=== PATIENT | male | born 1960 | race Caucasian/White ===

== ENCOUNTER 2017-08-13 01:24 | Emergency (ER) ==
[2017-08-13 01:45] VITALS: BP 157/100; TEMP 97.5; BMI 34.5
[2017-08-13] MEDS ORDERED: ASPIRIN EC PO STA (03:13)
[2017-08-13] MEDS ORDERED: LOPRESSOR IVP STA (03:14)
--- NOTE | 2017-08-13 03:17 | ED.PDOC ---
General ED Provider: Dr. ROMARIO SWAN Chief Complaint: Back Pain Stated Complaint: Patient woke up with mid back pain sharp type. shortness of breath. called 911, by the time they were there he was feeling better. BP is still high. no chest pain now, had some spicy fod today, Time Seen by Physician: 03:15 Mode of Arrival: Ambulance Information Source: Patient Nursing and Triage Documentation Reviewed and Agree: Yes Reviewed sepsis parameters & appropriate labs ordered?: No System Inflammatory Response Syndrome: Not Applicable Sepsis Protocol: For patient's 13 years and over: Temp is 96.8 and below OR 101 and greater Pulse >90 BPM Resp >20/minute Acutely Altered Mental Status Are patient's symptoms suggestive of a new infection, such as: -Pneumonia -Skin, Soft Tissue -Endocarditis -UTI -Bone, Joint Infection -Implantable Device -Acute Abdominal Infection -Wound Infection -Meningitis -Blood Stream Catheter Infection -Unknown Respiratory Complaint Exam - Shortness of Air Complaint/Exam Symptoms Are: Resolved Timing: Intermittent Initial Severity: Moderate Current Severity: None Character: Reports: Dyspnea at rest Aggravating: Reports: None Alleviating: Reports: None Associated Signs and Symptoms: Denies: Cough, Wheezing, Chest pain with cough, Chest pain, Fever, Chills, Diaphoresis, Nasal congestion, Dizziness, Calf pain, Calf swelling, Edema, Rapid breathing, Labored breathing, Decreased intake History of Healthcare-Acquired Pneumonia: No Pulmonary Embolism Risk Factors: Reports: None Cardiac Risk Factors: Reports: Elevated lipids, Hypertension Pseudomonas Risk Factors: Reports: None Tuberculosis Risk Factors: Reports: None Home Oxygen Use: No Recent Stress Test: No Recent Echo/LV Function: No Respiratory Distress: None Stridor Present: No Tracheal Deviation: No Subcutaneous Emphysema: No Accessory Muscle Use: No Retractions: Not Present Diminished Breath Sounds: No Prolonged Expiratory Phase: No Unable to Speak Full Sentences: No Fatigue: No Leg Swelling: No Stacy's Sign Present: No Grunting Respirations: No Kussmaul Respirations: No Differential Diagnoses: CHF, Pulmonary Edema, Unstable Angina, Pneumonia, GERD Review of Systems - Review Of Systems Constitutional: Reports: Malaise, Weakness Eyes: Reports: No symptoms Ears, Nose, Mouth, Throat: Reports: No symptoms Respiratory: Reports: Short of air Cardiac: Reports: Chest pain GI: Reports: Abdominal pain : Reports: No symptoms Musculoskeletal: Reports: Back pain Skin: Reports: No symptoms Neurological: Reports: No symptoms Endocrine: Reports: No symptoms Hematologic/Lymphatic: Reports: No symptoms All Other Systems: Reviewed and Negative Past Medical History - Past Medical History Previously Healthy: Yes Endocrine: Reports: None Cardiovascular: Reports: Hypertension Respiratory: Reports: None Hematological: Reports: None Gastrointestinal: Reports: GERD Genitourinary: Reports: None Neuro/Psych: Reports: None Musculoskeletal: Reports: None Cancer: Reports: None - Surgical History General Surgical History: Reports: None - Family History Family History: Reports: None - Social History Smoking Status: Former smoker Hx Substance Use: No Alcohol Screening: Occasionally - Immunizations Tetanus Shot up to Date: (UNKNOWN) Physical Exam - Physical Exam Appearance: Well-appearing, Obese Eyes: MAT, EOMI, Conjunctiva clear ENT: Ears normal, Nose normal, Oropharynx normal Respiratory: Airway patent, Breath sounds clear, Breath sounds equal, Respirations nonlabored Cardiovascular: RRR, Pulses normal, No rub, No murmur GI/: Soft, Nontender, No masses, Bowel sounds normal, No Organomegaly Musculoskeletal: Normal strength, ROM intact, No edema, No calf tenderness Skin: Warm, Dry, Normal color Neurological: Sensation intact, Motor intact, Reflexes intact, Cranial nerves intact, Alert, Oriented Psychiatric: Affect appropriate, Mood appropriate Interpretation - Radiology Interpretation Radiology Interpretation By: ED Physician Radiology Results: Negative Exam Interpreted: CXR Critical Care Note - Critical Care Note Total Time (mins): 30 Course - Course Hematology/Chemistry: 08/13/17 03:15 08/13/17 03:15 Orders, Labs, Meds: Lab Review 08/13/17 08/13/17 08/13/17 03:15 03:15 03:15 WBC 8.50 RBC 4.91 Hgb 15.8 Hct 44.5 MCV 90.6 MCH 32.2 H MCHC 35.5 H RDW Coeff of [place] 12.1 Plt Count 255 Immature Gran % (Auto) 0.5 Neut % (Auto) 59.7 Lymph % (Auto) 29.2 [place] % (Auto) 9.2 Eos % (Auto) 0.7 Baso % (Auto) 0.7 Immature Gran # (Auto) 0.0 Neut # (Auto) 5.1 Lymph # (Auto) 2.5 [place] # (Auto) 0.8 Eos # (Auto) 0.1 Baso # (Auto) 0.1 D-Dimer (Manual) Sodium 139 Potassium 3.4 L Chloride 101 Carbon Dioxide 23 Anion Gap 18.4 BUN 13 Creatinine 1.06 Estimated GFR (MDRD) 73.00 BUN/Creatinine Ratio 12.26 Glucose 129 H Calcium 9.4 Total Bilirubin 0.3 AST 26 ALT 40 Alkaline Phosphatase 123 Total Creatine Kinase 70 Troponin I < 0.0100 B-Natriuretic Peptide 12 Total Protein 7.9 Albumin 3.7 Globulin 4.2 Albumin/Globulin Ratio 0.88 Amylase 47 Lipase 42 08/13/17 03:15 WBC RBC Hgb Hct MCV MCH MCHC RDW Coeff of [place] Plt Count Immature Gran % (Auto) Neut % (Auto) Lymph % (Auto) [place] % (Auto) Eos % (Auto) Baso % (Auto) Immature Gran # (Auto) Neut # (Auto) Lymph # (Auto) [place] # (Auto) Eos # (Auto) Baso # (Auto) D-Dimer (Manual) 407.72 Sodium Potassium Chloride Carbon Dioxide Anion Gap BUN Creatinine Estimated GFR (MDRD) BUN/Creatinine Ratio Glucose Calcium Total Bilirubin AST ALT Alkaline Phosphatase Total Creatine Kinase Troponin I B-Natriuretic Peptide Total Protein Albumin Globulin Albumin/Globulin Ratio Amylase Lipase Orders Category Date Time Status EKG-(ED ONLY) Stat CARDIO 08/13/17 03:13 Ordered EKG-(ED ONLY) Stat CARDIO 08/13/17 04:27 Ordered IV [ED IV/MEDIPORT/POWERPORT] .ONCE EMERGENCY 08/13/17 03:41 Active AMYLASE Stat LAB 08/13/17 03:15 Completed B-TYPE NATRIURETIC PEPTIDE Stat LAB 08/13/17 03:15 Completed CBC W/ AUTO DIFF Stat LAB 08/13/17 03:15 Completed COMPREHENSIVE METABOLIC PANEL Stat LAB 08/13/17 03:15 Completed CREATINE KINASE Stat LAB 08/13/17 03:15 Completed D-DIMER Stat LAB 08/13/17 03:15 Completed LIPASE Stat LAB 08/13/17 03:15 Completed TROPONIN I Stat LAB 08/13/17 03:15 Completed 0.9 % Sodium Chloride [Saline Flush] MEDS 08/13/17 03:41 Ordered 1 syr IVF PRN PRN Aspirin [Aspirin EC] MEDS 08/13/17 03:13 Discontinued 325 mg PO ONCE STA Metoprolol Tartrate [Lopressor] MEDS 08/13/17 03:14 Discontinued 5 mg IVP ONCE STA Potassium Chloride [K-Dur] MEDS 08/13/17 05:38 Stat 40 meq PO ONCE STA CHEST, 1V AP ONLY Stat RADS 08/13/17 03:13 Taken Medications Generic Name Dose Route Start Last Admin Trade Name Rocaelq PRN Reason Stop Dose Admin Sodium Chloride 1 syr 08/13/17 03:41 08/13/17 03:42 Saline Flush IVF 1 syr PRN PRN Administration To flush IV Discontinued Medications Generic Name Dose Route Start Last Admin Trade Name Freaaron PRN Reason Stop Dose Admin Aspirin 325 mg 08/13/17 03:13 08/13/17 03:30 Aspirin Ec PO 08/13/17 03:14 325 mg ONCE STA Administration Metoprolol Tartrate 5 mg 08/13/17 03:14 08/13/17 03:37 Lopressor IVP 08/13/17 03:15 5 mg ONCE STA Administration Vital Signs: Temp Pulse Resp BP Pulse Ox 08/13/17 01:25 97.5 F L 117 H 20 157/100 H 98 Departure - Departure Time of Disposition: 03:18 Disposition: HOME SELF-CARE Discharge Problem: Shortness of breath Back pain Qualifiers: Back pain location: thoracic back pain Chronicity: acute Back pain laterality: midline Qualified Code(s): M54.6 - Pain in thoracic spine Instructions: Dyspnea (ED) Condition: Stable Pt referred to PMD for follow-up: Yes IPMP verified?: No Additional Instructions: No spicy food, no fried food Soft diet F/u with PMD needs further evaluation as out patient life style modification Allergies/Adverse Reactions: Allergies No Known Drug Allergies Adverse Reaction (Verified 08/13/17 01:42) Home Medications: Ambulatory Orders Benazepril HCl [Lotensin] 40 mg PO DAILY 08/13/17 Clonidine HCl 0.2 mg PO BID 08/13/17 Hydrochlorothiazide 12.5 mg PO DAILY 08/13/17 Omeprazole 20 mg PO DAILY 08/13/17 Disposition Discussed With: Patient, Family
[2017-08-13] MEDS ORDERED: K-DUR PO STA (05:38)
--- NOTE | 2017-08-13 06:57 | DI ---
EXAMINATION: AP chest radiograph. HISTORY: Chest pain COMPARISON: None available. FINDINGS: No focal consolidation, pleural effusion or pneumothorax is identified. The cardiomediastinal silhouette is within normal limits. IMPRESSION: No acute cardiopulmonary findings.
== END 2017-08-13 06:01 | disposition home or self-care (01) ==
LOC: ED 01:24
DX: R06.02 Shortness of breath (principal); M54.6 Pain in thoracic spine; I10 Essential (primary) hypertension; E78.5 Hyperlipidemia, unspecified; Z79.899 Other long term (current) drug therapy
CPT/HCPCS: 36415; 80053; 82150; 82550; 83690; 83880; 84484; 85025; 85379; 93005; 93010; 96374; 99283